=== PATIENT | female | born 1995 | race Caucasian/White ===

== ENCOUNTER 2016-09-23 14:42 | Emergency (ER) | payer OTHER ==
[~2016-09-23] VITALS: Ht 165.1 cm; Wt 113.8 kg
[~2016-09-23 14:42] MED LIST: CETIRIZINE HCL10 M2 PO; KEFLEX500 MG PO; MICROGESTIN1 EACH PO; TOPIRAMATE25 MG PO; VALACYCLOVIR500 MG PO
[2016-09-23 17:39] VITALS: BP 101/51
[2016-09-23] MEDS ORDERED: CLEOCIN300 MG PO (17:39)
== END 2016-09-23 17:44 | disposition home or self-care (01) ==
LOC: EME 14:42
DX: L02.416 Cutaneous abscess of left lower limb (principal); Z86.14 Personal history of Methicillin resistant Staphylococcus aureus infection
CPT/HCPCS: 99281; 99284